=== PATIENT | female | born 1970 | race Caucasian/White ===

== ENCOUNTER 2023-05-24 08:06 | Emergency (ER) | payer OTHER ==
[~2023-05-24] VITALS: Ht 157.4 cm; Wt 72.6 kg
[2023-05-24 08:54] LABS: MEAN CELL VOLUME 96.2 fl (81.0-99.0); MEAN CORPUSCULAR HGB 28.8 pg (27.0-31.0); MEAN CORPUSCULAR HGB CONC 29.9 g/dl (33.0-37.0); MEAN PLATELET VOLUME 9.7 fl (9.6-12.3); NUCLEATED RED BLOOD CELL 0.2 % (0.0-0.0); PLATELET COUNT AUTOMATED 264 10*3/uL (130-400); RED BLOOD COUNT 1.84 10*6/uL (4.10-5.10); RED CELL DISTRI WIDTH 14.9 % (0-14.5); WHITE BLOOD COUNT 10.9 10*3/uL (4.8-10.8)
[2023-05-24 09:02] LABS: HEMATOCRIT 17.7 % (37.0-47.0); MANUAL DIFF REFLEX YES
[2023-05-24 09:12] LABS: TOTAL CELLS COUNTED 100 #CELLS
[2023-05-24 09:13] LABS: PLATELET SUFFICIENCY NORMAL (NORMAL); POLYCHROMASIA SLIGHT
[2023-05-24 09:20] LABS: ALKALINE PHOSPHATASE 53 U/L (46-116); BUN 60 mg/dl (9-23); CHLORIDE 109 mmol/L (98-107); LIPASE 66 U/L (12-53); POTASSIUM 4.1 mmol/L (3.4-5.1); SGPT/ALT 18 U/L (5-49); TOTAL PROTEIN 5.1 gm/dL (6.0-8.0)
[2023-05-24 10:04] LABS: ACT PARTIAL THROMBO TIME < 20.0 SECONDS (20.0-32.1)
[2023-05-24 10:10] VITALS: BP 137/71
[2023-05-24 10:25] VITALS: BP 122/65
[2023-05-24 10:50] VITALS: BP 128/65
[2023-05-24 11:40] VITALS: BP 126/71
[2023-05-24 12:11] LABS: MEAN CELL VOLUME 93.2 fl (81.0-99.0); MEAN CORPUSCULAR HGB 29.2 pg (27.0-31.0); MEAN CORPUSCULAR HGB CONC 31.4 g/dl (33.0-37.0); MEAN PLATELET VOLUME 9.5 fl (9.6-12.3); PLATELET COUNT AUTOMATED 226 10*3/uL (130-400); RED BLOOD COUNT 2.36 10*6/uL (4.10-5.10); RED CELL DISTRI WIDTH 16.1 % (0-14.5); WHITE BLOOD COUNT 21.3 10*3/uL (4.8-10.8)
[2023-05-24 12:29] LABS: MANUAL DIFF REFLEX YES
[2023-05-24 12:31] LABS: TOTAL CELLS COUNTED 100 #CELLS
[2023-05-24 12:32] LABS: PLATELET SUFFICIENCY NORMAL (NORMAL)
[2023-05-24 12:33] LABS: BURR CELLS FEW; POLYCHROMASIA SLIGHT; ROULEAUX SLIGHT
[2023-05-24 13:15] VITALS: BP 99/55
[2023-05-24 13:15] LABS: BILIRUBIN Negative (Negative); BLOOD Negative (Negative); CLARITY Clear (Clear); COLOR Yellow (Yellow); GLUCOSE Negative (Negative); KETONE Negative (Negative); LEUKO ESTERASE Negative (Negative); NITRITE Negative (Negative); SPECIFIC GRAVITY >= 1.030 (1.001-1.030); UROBILINOGEN 0.2 E.U./dl (0.0-1.0)
[2023-05-24 13:22] LABS: BACTERIA 1+
[2023-05-24 13:23] LABS: RBC 0-2 rbc/hpf (0-2)
[2023-05-24 13:30] VITALS: BP 103/59
== END 2023-05-24 13:45 | disposition short-term general hospital (02) ==
LOC: ED 08:06
PROVIDERS: Internal Medicine
DX: A41.9 Sepsis, unspecified organism (principal); R65.20 Severe sepsis without septic shock; K92.2 Gastrointestinal hemorrhage, unspecified; J18.9 Pneumonia, unspecified organism

== ENCOUNTER 2023-06-02 18:26 | Emergency (ER) | payer OTHER ==
[~2023-06-02] VITALS: Ht 149.8 cm; Wt 71.2 kg
[2023-06-02 19:23] LABS: BASO % 0.3 % (0.0-1.0); EOS % 0.1 % (1.0-4.0); LYMPH % 16.6 % (27.0-41.0); MEAN CELL VOLUME 91.6 fl (81.0-99.0); MEAN CORPUSCULAR HGB 28.3 pg (27.0-31.0); MEAN CORPUSCULAR HGB CONC 30.9 g/dl (33.0-37.0); MEAN PLATELET VOLUME 9.1 fl (9.6-12.3); MONO # 0.8 10*3/uL (0.1-1.0); MONO % 6.3 % (3.0-9.0); NEUT % 75.8 % (47.0-73.0); NUCLEATED RED BLOOD CELL 0.2 % (0.0-0.0); PLATELET COUNT AUTOMATED 418 10*3/uL (130-400); RED BLOOD COUNT 2.51 10*6/uL (4.10-5.10); RED CELL DISTRI WIDTH 15.4 % (0-14.5); WHITE BLOOD COUNT 11.9 10*3/uL (4.8-10.8)
[2023-06-02 19:34] LABS: ACT PARTIAL THROMBO TIME 23.7 SECONDS (20.0-32.1)
[2023-06-02 19:43] LABS: ALKALINE PHOSPHATASE 51 U/L (46-116); BUN 26 mg/dl (9-23); CHLORIDE 112 mmol/L (98-107); CPK 35 U/L (34-171); LIPASE 141 U/L (12-53); POTASSIUM 3.4 mmol/L (3.4-5.1); SGPT/ALT 22 U/L (5-49); TOTAL PROTEIN 5.2 gm/dL (6.0-8.0)
[2023-06-02 20:01] VITALS: BP 97/54
[2023-06-02 20:19] VITALS: BP 95/51
[2023-06-02 20:36] VITALS: BP 105/52
== END 2023-06-02 21:00 | disposition short-term general hospital (02) ==
LOC: ED 18:26
PROVIDERS: Nurse Practitioner Family
DX: A41.9 Sepsis, unspecified organism (principal); R57.1 Hypovolemic shock; K92.2 Gastrointestinal hemorrhage, unspecified; D64.9 Anemia, unspecified; R00.0 Tachycardia, unspecified